=== PATIENT | male | born 1965 | race Caucasian/White ===

== ENCOUNTER 2017-12-23 08:51 | Emergency (ER) | payer BC, OTHER ==
[2017-12-23 08:56] VITALS: TEMP 98.4
[2017-12-23] MEDS ORDERED: SODIUM CHLORIDE 0.9% 1,000 ML IV ONE (09:08)
[2017-12-23 09:39] LABS: Basophils % (A) 0 %; Eosinophils # (A) 0.1 k/uL (0-0.7); Eosinophils % (A) 1 %; HCT 45.8 % (39.0-53.0); HGB 16.2 gm/dL (13.0-17.5); Lymphocytes % (A) 33 %; MCH 32.4 pg (25.0-35.0); MCHC 35.4 g/dL (31.0-37.0); MCV 91.5 fL (80.0-100.0); Monocytes # (A) 0.4 k/uL (0-1.0); Monocytes % (A) 6 %; Neutrophils # (A) 3.5 k/uL (1.3-7.7); Neutrophils % (A) 58 %; Platelet Count 177 k/uL (150-450); RBC 5.01 m/uL (4.30-5.90); RDW 12.8 % (11.5-15.5); WBC 5.9 k/uL (3.8-10.6)
[2017-12-23 09:51] LABS: Appearance,Urine Clear (Clear); Bacteria,Urine Rare /hpf; Bilirubin,Urine Negative (Negative); Blood,Urine Negative (Negative); Color,Urine Yellow; Glucose,Urine (UA) Negative (Negative); Ketones,Urine Negative (Negative); Leukocyte Esterase,Urine Negative (Negative); Nitrite,Urine Negative (Negative); PH, Urine 6.5 (5.0-8.0); Protein,Urine 1+ (Negative); RBC,Urine 1 /hpf (0-5); Specific Gravity,Urine 1.014 (1.001-1.035); Squamous Epithelial Cell,Urine <1 /hpf (0-4); Urobilinogen,Urine <2.0 mg/dL (<2.0); WBC,Urine <1 /hpf (0-5)
[2017-12-23 09:52] LABS: ALT 40 U/L (21-72); AST 45 U/L (17-59); Albumin 4.4 g/dL (3.5-5.0); Alkaline Phosphatase 43 U/L (38-126); Amylase 52 U/L (30-110); Anion Gap 11 mmol/L; Blood Urea Nitrogen 11 mg/dL (9-20); Calcium 9.3 mg/dL (8.4-10.2); Carbon Dioxide 27 mmol/L (22-30); Chloride 102 mmol/L (98-107); Glucose 119 mg/dL (74-99); Lipase 163 U/L (23-300); Potassium 4.3 mmol/L (3.5-5.1); Sodium 140 mmol/L (137-145); Total Bilirubin 1.1 mg/dL (0.2-1.3); Total Protein 7.5 g/dL (6.3-8.2)
[2017-12-23 09:55] LABS: INR 1.9 (<1.2); Prothrombin Time 17.4 sec (9.0-12.0)
--- NOTE | 2017-12-23 10:28 | ED ---
Abdominal Pain HPI - General Chief Complaint: Abdominal Pain Stated Complaint: Abdominal pain Time Seen by Provider: 12/23/17 09:00 Source: patient, RN notes reviewed Mode of arrival: ambulatory Limitations: no limitations - History of Present Illness Initial Comments: This a 52-year-old male presents emergency Department chief complaint of left lower quadrant abdominal pain. Patient states it has been bothersome or last few days and states that he initially thought he injured himself doing yard work he states he had no improvement with rest seemed to worsen. Patient states she had a colonoscopy approximate 4 years ago which showed no acute abnormality's. Patient reports no diarrhea no constipation no dysuria no hematuria. He states that he even tried stool softeners to see if it improves his symptoms but did not. Patient reports no fever no chills no night sweats. Patient states she does have mild discomfort when he stretches back. Patient's had no prior abdominal surgeries. - Related Data Home Medications Medication Instructions Recorded Confirmed Aspirin 325 mg PO DAILY 02/04/14 02/23/15 Lisinopril [Zestril] 20 mg PO DAILY 02/04/14 02/23/15 Previous Rx's Medication Instructions Recorded Rivaroxaban [Xarelto] 15 mg PO BID #42 tab 02/24/15 Rivaroxaban [Xarelto] 20 mg PO DAILY #30 tab 02/24/15 Allergies Allergy/AdvReac Type Severity Reaction Status Date / Time No Known Allergies Allergy Verified 12/23/17 08:55 Review of Systems ROS Statement: Those systems with pertinent positive or pertinent negative responses have been documented in the HPI. ROS Other: All systems not noted in ROS Statement are negative. 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 Father is alive and well. Brother with hypertension. One brother is healthy. 5 sisters are healthy. One child who is healthy. General Exam Limitations: no limitations General appearance: alert, in no apparent distress Head exam: Present: atraumatic, normocephalic, normal inspection Eye exam: Present: normal appearance, PERRL, EOMI. Absent: scleral icterus, conjunctival injection, periorbital swelling ENT exam: Present: normal exam, normal oropharynx, mucous membranes moist Neck exam: Present: normal inspection, full ROM. Absent: tenderness, meningismus, lymphadenopathy Respiratory exam: Present: normal lung sounds bilaterally. Absent: respiratory distress, wheezes, rales, rhonchi, stridor Cardiovascular Exam: Present: regular rate, normal rhythm, normal heart sounds. Absent: systolic murmur, diastolic murmur, rubs, gallop, clicks GI/Abdominal exam: Present: soft, tenderness, normal bowel sounds. Absent: distended, guarding, rebound, rigid Back exam: Absent: CVA tenderness (R), CVA tenderness (L) Skin exam: Present: warm, dry, intact, normal color. Absent: rash Course Vital Signs 12/23/17 08:53 Temperature 98.4 F Pulse Rate 76 Respiratory 20 Rate Blood Pressure 185/85 O2 Sat by Pulse 99 Oximetry Medical Decision Making - Medical Decision Making 52-year-old male presents for left lower quadrant abdominal pain. Patient had lab work, CT which shows epiploic appendicitis. Patient was updated on results patient is minimal discomfort at this time. We discussed that there is no surgical treatment or antibiotic as needed this time. Patient will follow-up with PCP and return for any worsening symptoms. - Lab Data Result diagrams: 12/23/17 09:10 12/23/17 09:10 Lab Results 12/23/17 12/23/17 12/23/17 Range/Units 09:10 09:10 09:10 WBC 5.9 (3.8-10.6) k/uL RBC 5.01 (4.30-5.90) m/uL Hgb 16.2 (13.0-17.5) gm/dL Hct 45.8 (39.0-53.0) % MCV 91.5 (80.0-100.0) fL MCH 32.4 (25.0-35.0) pg MCHC 35.4 (31.0-37.0) g/dL RDW 12.8 (11.5-15.5) % Plt Count 177 (150-450) k/uL Neutrophils % 58 % Lymphocytes % 33 % Monocytes % 6 % Eosinophils % 1 % Basophils % 0 % Neutrophils # 3.5 (1.3-7.7) k/uL Lymphocytes # 2.0 (1.0-4.8) k/uL Monocytes # 0.4 (0-1.0) k/uL Eosinophils # 0.1 (0-0.7) k/uL Basophils # 0.0 (0-0.2) k/uL PT (9.0-12.0) sec INR (<1.2) Sodium 140 (137-145) mmol/L Potassium 4.3 (3.5-5.1) mmol/L Chloride 102 (98-107) mmol/L Carbon Dioxide 27 (22-30) mmol/L Anion Gap 11 mmol/L BUN 11 (9-20) mg/dL Creatinine 0.70 (0.66-1.25) mg/dL Est GFR (CKD-EPI)AfAm >90 (>60 ml/min/1.73 sqM) Est GFR (CKD-EPI)NonAf >90 (>60 ml/min/1.73 sqM) Glucose 119 H (74-99) mg/dL Plasma Lactic Acid Raudel 1.2 (0.7-2.0) mmol/L Calcium 9.3 (8.4-10.2) mg/dL Total Bilirubin 1.1 (0.2-1.3) mg/dL AST 45 (17-59) U/L ALT 40 (21-72) U/L Alkaline Phosphatase 43 (38-126) U/L Total Protein 7.5 (6.3-8.2) g/dL Albumin 4.4 (3.5-5.0) g/dL Amylase 52 (30-110) U/L Lipase 163 (23-300) U/L Urine Color Urine Appearance (Clear) Urine pH (5.0-8.0) Ur Specific Wilbur (1.001-1.035) Urine Protein (Negative) Urine Glucose (UA) (Negative) Urine Ketones (Negative) Urine Blood (Negative) Urine Nitrite (Negative) Urine Bilirubin (Negative) Urine Urobilinogen (<2.0) mg/dL Ur Leukocyte Esterase (Negative) Urine RBC (0-5) /hpf Urine WBC (0-5) /hpf Ur Squamous Epith Cells (0-4) /hpf Urine Bacteria (None) /hpf 12/23/17 12/23/17 Range/Units 09:10 09:10 WBC (3.8-10.6) k/uL RBC (4.30-5.90) m/uL Hgb (13.0-17.5) gm/dL Hct (39.0-53.0) % MCV (80.0-100.0) fL MCH (25.0-35.0) pg MCHC (31.0-37.0) g/dL RDW (11.5-15.5) % Plt Count (150-450) k/uL Neutrophils % % Lymphocytes % % Monocytes % % Eosinophils % % Basophils % % Neutrophils # (1.3-7.7) k/uL Lymphocytes # (1.0-4.8) k/uL Monocytes # (0-1.0) k/uL Eosinophils # (0-0.7) k/uL Basophils # (0-0.2) k/uL PT 17.4 H (9.0-12.0) sec INR 1.9 H (<1.2) Sodium (137-145) mmol/L Potassium (3.5-5.1) mmol/L Chloride (98-107) mmol/L Carbon Dioxide (22-30) mmol/L Anion Gap mmol/L BUN (9-20) mg/dL Creatinine (0.66-1.25) mg/dL Est GFR (CKD-EPI)AfAm (>60 ml/min/1.73 sqM) Est GFR (CKD-EPI)NonAf (>60 ml/min/1.73 sqM) Glucose (74-99) mg/dL Plasma Lactic Acid Raudel (0.7-2.0) mmol/L Calcium (8.4-10.2) mg/dL Total Bilirubin (0.2-1.3) mg/dL AST (17-59) U/L ALT (21-72) U/L Alkaline Phosphatase (38-126) U/L Total Protein (6.3-8.2) g/dL Albumin (3.5-5.0) g/dL Amylase (30-110) U/L Lipase (23-300) U/L Urine Color Yellow Urine Appearance Clear (Clear) Urine pH 6.5 (5.0-8.0) Ur Specific Wilbur 1.014 (1.001-1.035) Urine Protein 1+ H (Negative) Urine Glucose (UA) Negative (Negative) Urine Ketones Negative (Negative) Urine Blood Negative (Negative) Urine Nitrite Negative (Negative) Urine Bilirubin Negative (Negative) Urine Urobilinogen <2.0 (<2.0) mg/dL Ur Leukocyte Esterase Negative (Negative) Urine RBC 1 (0-5) /hpf Urine WBC <1 (0-5) /hpf Ur Squamous Epith Cells <1 (0-4) /hpf Urine Bacteria Rare H (None) /hpf Disposition Clinical Impression: Epiploic appendagitis Disposition: HOME SELF-CARE Condition: Stable Instructions: Abdominal Pain (ED) Additional Instructions: Please return to the Emergency Department if symptoms worsen or any other concerns. Is patient prescribed a controlled substance at d/c from ED?: No Referrals: Jese Barkley MD [Primary Care Provider] - 1-2 days
--- NOTE | 2017-12-23 10:30 | CT ---
EXAMINATION TYPE: CT abdomen pelvis w con DATE OF EXAM: 12/23/2017 COMPARISON: CT abdomen pelvis November 19, 2015 HISTORY: LLQ pain CT DLP: 1748.2 mGycm, Automated Exposure Control for Dose Reduction was Utilized. CONTRAST: CT scan of the abdomen and pelvis is performed without oral but with IV Contrast, patient injected wi th 100 mL of Isovue 300. FINDINGS: LUNG BASES: There is stable 5 mm subpleural nodule left lung base axial image 17 presumed benign give n interval stability. LIVER/GB: Liver is diffusely low dense suggesting fatty infiltration PANCREAS: No significant abnormality is seen. SPLEEN: No significant abnormality is seen. ADRENALS: No significant abnormality is seen. KIDNEYS: Subcentimeter low dense lesion posteriorly lower pole level right kidney axial image 45 seri es 7 is too small to further characterize but presumed benign. BOWEL: No suspicious small or large bowel dilatation is seen. There is ovoid shaped fat density wit h surrounding moderate inflammatory change in the left lower quadrant axial image 59 along the anteri or aspect of the colon near junction of left and sigmoid colon. PROSTATE/SEMINAL VESICLES: No gross abnormality seen. LYMPH NODES: No greater than 1cm abdominal or pelvic lymph nodes are appreciated. OSSEOUS STRUCTURES: There is prominent facet arthropathy in the mid to lower lumbar spine. There is m oderate to severe disc space narrowing with vacuum disc phenomenon and mild spurring L5-S1 level. The re is moderate joint space loss and mild to moderate acetabular spurring in both hips. OTHER: No significant additional abnormality is seen. IMPRESSION: As above, inflammatory change left lower quadrant is consistent with epiploic appendagiti s.
[2017-12-23 11:04] VITALS: BP 166/72; PULSE 66; RESP 16
== END 2017-12-23 11:08 | disposition home or self-care (01) ==
LOC: EC 08:51
DX: K63.89 Other specified diseases of intestine (principal); I10 Essential (primary) hypertension; Z87.891 Personal history of nicotine dependence; Z79.82 Long term (current) use of aspirin; Z79.899 Other long term (current) drug therapy
CPT/HCPCS: 36415; 80053; 82150; 83605; 83690; 85025; 85610; 81001; 74177; 99284; Q9967

== ENCOUNTER → 2018-07-30 | Outpatient (CLI) | payer BC ==
--- NOTE | 2018-07-31 05:17 | XR ---
EXAMINATION TYPE: XR lumbosacral spine min 4V DATE OF EXAM: 07/30/2018 COMPARISON: NONE HISTORY: 53-year-old male with low back pain TECHNIQUE: 5 views FINDINGS: 5 lumbar type vertebral bodies. Facet arthropathy lower lumbar spine. No pars interarticularis defect . Mild multilevel degenerative disc disease with mild disc space narrowing throughout, more moderate to advanced at L5-S1 with vacuum phenomenon and endplate sclerosis. Vertebral body heights are preser guerline and alignment is maintained. IMPRESSION: 1. Mild multilevel degenerative disc disease, more moderate to advanced at L5-S1. 2. Facet arthropathy mid to lower lumbar spine. 3. No vertebral compression collapse or malalignment.
== END | disposition home or self-care (01) ==
LOC: RADXRMAIN 14:11
PROVIDERS: ATTEND Family Medicine
DX: M51.37 Other intervertebral disc degeneration, lumbosacral region (principal); M46.96 Unspecified inflammatory spondylopathy, lumbar region
CPT/HCPCS: 72110

== ENCOUNTER 2019-06-13 07:47 | Emergency (ER) | payer BC ==
[2019-06-13 07:54] VITALS: TEMP 97.6
--- NOTE | 2019-06-13 08:45 | XR ---
EXAMINATION TYPE: XR knee complete LT DATE OF EXAM: 06/13/2019 CLINICAL HISTORY: pain TECHNIQUE: Three views of the left knee are obtained. COMPARISON: None. FINDINGS: There is no acute fracture/dislocation. The tri-compartment joint spaces appear within no rmal limits. The overlying soft tissue appears unremarkable. IMPRESSION: There is no acute fracture or dislocation ICD 10 NO FRACTURE, INITIAL EVALUATION
[2019-06-13 09:21] LABS: Basophils % (A) 0 %; Eosinophils # (A) 0.1 k/uL (0-0.7); Eosinophils % (A) 1 %; INR 1.5 (<1.2); Lymphocytes # (A) 2.1 k/uL (1.0-4.8); Lymphocytes % (A) 25 %; MCH 33.3 pg (25.0-35.0); MCHC 34.9 g/dL (31.0-37.0); MCV 95.5 fL (80.0-100.0); Mean Platelet Volume 5.7; Monocytes # (A) 0.6 k/uL (0-1.0); Monocytes % (A) 7 %; Neutrophils # (A) 5.6 k/uL (1.3-7.7); Neutrophils % (A) 65 %; Platelet Count 188 k/uL (150-450); Prothrombin Time 15.1 sec (9.0-12.0); RBC 4.51 m/uL (4.30-5.90); WBC 8.6 k/uL (3.8-10.6)
--- NOTE | 2019-06-13 09:21 | US ---
EXAMINATION TYPE: US venous doppler duplex LE LT DATE OF EXAM: 06/13/2019 9:05 AM COMPARISON: NONE CLINICAL HISTORY: calf swelling. left knee pain and edema. patient on blood thinner SIDE PERFORMED: left TECHNIQUE: The lower extremity deep venous system is examined utilizing real time linear array sonog rashel with graded compression, doppler sonography and color-flow sonography. VESSELS IMAGED: External Iliac Vein (EIV) Common Femoral Vein Deep Femoral Vein Greater Saphenous Vein * Femoral Vein Popliteal Vein Small Saphenous Vein * Proximal Calf Veins (* superficial vessels) Left Leg: No evidence of DVT IMPRESSION: No evidence for DVT at this time.
--- NOTE | 2019-06-13 09:50 | ED ---
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 He reports it was nontraumatic and started yesterday. He noted a slight ache and swelling to left knee. States that he had difficulty sleeping the pain got worse. He did take a Naalehu 5 which did take the edge off of the pain. No hardware in the left lower extremity. Admits to mild warmth. No overlying skin changes. The patient continues to ambulate on the extremity but states that this painful when the joint reaches its full range of motion. He also noted a mild swelling to his left calf. He showed his who recommended that he get an ultrasound of his leg done as he does have a history of the mesenteric vein clot. Denies any fevers or chills. No numbness or tingling in his lower extremity. Denies any foot or hip pain. There are no alleviating, precipitating or modifying factors - Related Data Home Medications Medication Instructions Recorded Confirmed Lisinopril [Zestril] 20 mg PO DAILY 02/04/14 06/13/19 Gabapentin [Neurontin] 300 mg PO DIRECTED 06/13/19 06/13/19 HYDROcodone/APAP 7.5-325MG [Naalehu 1 tab PO Q12H PRN 06/13/19 06/13/19 7.5-325] LORazepam [Ativan] 1 mg PO TID PRN 06/13/19 06/13/19 Sildenafil Citrate 100 mg PO DAILY PRN 06/13/19 06/13/19 Warfarin [Coumadin] 5 mg PO BID 06/13/19 06/13/19 Previous Rx's Medication Instructions Recorded Hydrocodone/Acetaminophen [Naalehu 1 tab PO Q6HR PRN #12 tab 06/13/19 5-325] Allergies Allergy/AdvReac Type Severity Reaction Status Date / Time No Known Allergies Allergy Verified 06/13/19 09:44 Review of Systems ROS Statement: Those systems with pertinent positive or pertinent negative responses have been documented in the HPI. ROS Other: All systems not noted in ROS Statement are negative. 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 Father is alive and well. Brother with hypertension. One brother is healthy. 5 sisters are healthy. One child who is healthy. General Exam Limitations: no limitations General appearance: alert, in no apparent distress Respiratory exam: Present: normal lung sounds bilaterally. Absent: respiratory distress Cardiovascular Exam: Present: regular rate, normal rhythm Extremities exam: Present: tenderness (anterior tibial tuberosity with surrounding swelling and mild warmth. No redness to the skin. No joint effusion noted. Pain with mcmurrys test. Negative anterior and posterior drawer signs. Pain with full extension and flexion. Minimal calf swelling. 5/5 muscle strength. Achilles and pateller reflexes intact. 2+ DP and PT pulses. cap refill <2 seconds. Compartments are soft. Intact distal sensation. ) Skin exam: Present: warm, dry, intact Course Vital Signs 06/13/19 06/13/19 07:51 10:16 Temperature 97.6 F Pulse Rate 76 70 Respiratory 20 16 Rate Blood Pressure 162/92 127/82 O2 Sat by Pulse 99 Oximetry Medical Decision Making - Medical Decision Making Upon arrival the patient is placed into room 10. A thorough history and physical exam is performed. Because the patient's history of venous thrombosis I did recommend ultrasound. I also recommended lab studies as patient does have a history of subtherapeutic INR. INR is 1.5. Doppler of the left lower extremity demonstrates no acute DVT. Left knee x-ray demonstrates no fracture or dislocation. I discussed results of the patient. I did discuss diagnosis, differential and treatment options. The patient presents emergency room with report of left knee pain which is nontraumatic. No concerning signs for a s eptic joint. He does see Dr. Childs in office. He is requesting something for pain control. I did provide the patient with prescription for Naalehu. Side effect profile is discussed. He does sign and opioids start talking form. Medications E prescribed. He will follow up with Dr. Childs next week. Return to the ED for any new or worsening symptoms. The patient was discharged home in stable condition - Lab Data Result diagrams: 06/13/19 09:00 Lab Results 06/13/19 06/13/19 Range/Units 09:00 09:00 WBC 8.6 (3.8-10.6) k/uL RBC 4.51 (4.30-5.90) m/uL Hgb 15.0 (13.0-17.5) gm/dL Hct 43.0 (39.0-53.0) % MCV 95.5 (80.0-100.0) fL MCH 33.3 (25.0-35.0) pg MCHC 34.9 (31.0-37.0) g/dL RDW 12.0 (11.5-15.5) % Plt Count 188 (150-450) k/uL Neutrophils % 65 % Lymphocytes % 25 % Monocytes % 7 % Eosinophils % 1 % Basophils % 0 % Neutrophils # 5.6 (1.3-7.7) k/uL Lymphocytes # 2.1 (1.0-4.8) k/uL Monocytes # 0.6 (0-1.0) k/uL Eosinophils # 0.1 (0-0.7) k/uL Basophils # 0.0 (0-0.2) k/uL PT 15.1 H (9.0-12.0) sec INR 1.5 H (<1.2) Disposition Clinical Impression: Knee pain, left Disposition: HOME SELF-CARE Condition: Stable Instructions (If sedation given, give patient instructions): Knee Pain (ED) Additional Instructions: Please [facility] up with the [facility] regarding your pain. Return to emergency room for any new or worsening symptoms Prescriptions: Hydrocodone/Acetaminophen [Naalehu 5-325] 1 tab PO Q6HR PRN #12 tab PRN Reason: Pain Is patient prescribed a controlled substance at d/c from ED?: Yes When asked, does pt state using other controlled substances?: No If prescribed controlled substance>3 days was MAPS reviewed?: Prescribed <3 Days If opioid is for acute pain is fill amount 7 days or less?: Yes If Rx opioid, was Start Talking consent form obtained?: Yes Referrals: Jese Barkley MD [Primary Care Provider] - 1-2 days Enrrique Childs DO [Doctor of Osteopathic Medicine] - 1-2 days Time of Disposition: 09:53
[2019-06-13 10:17] VITALS: BP 127/82; PULSE 70; RESP 16
== END 2019-06-13 10:17 | disposition home or self-care (01) ==
LOC: EC 07:47
DX: M25.562 Pain in left knee (principal); M25.462 Effusion, left knee; M79.89 Other specified soft tissue disorders; K55.069 Acute infarction of intestine, part and extent unspecified; I10 Essential (primary) hypertension; Z87.891 Personal history of nicotine dependence; Z79.01 Long term (current) use of anticoagulants; Z79.899 Other long term (current) drug therapy
CPT/HCPCS: 36415; 85025; 85610; 99284

== ENCOUNTER → 2020-04-14 | Outpatient (CLI) | payer BC ==
--- NOTE | 2020-04-14 13:57 | XR ---
EXAMINATION TYPE: XR lumbar spine 2 or 3V DATE OF EXAM: 04/14/2020 CLINICAL HISTORY: pain TECHNIQUE: Three views of the lumbar spine are submitted. COMPARISON: None. FINDINGS: There are 5 lumbar type vertebral bodies identified. The lumbar spine shows satisfactory alignment w ithout evidence of acute fracture or dislocation. Vertebral body heights are within normal limits. Severe degenerative disc space narrowing at L5-S1 and vacuum disc noted. The overlying soft tissue a ppears unremarkable. IMPRESSION: No acute fracture or dislocation is seen in the lumbar spine. ICD 10 NO FRACTURE, INITIAL EVALUATION
== END | disposition home or self-care (01) ==
LOC: RADXRMAIN 13:36
PROVIDERS: ATTEND Family Medicine
DX: M54.5 Low back pain (principal)
CPT/HCPCS: 72100

== ENCOUNTER → 2020-06-21 | Outpatient (CLI) | payer OTHER ==
[2020-06-21 09:50] LABS: African American GFR (CKD) >90 (>60 ml/min/1.73 sqM); Anion Gap 4 mmol/L; Blood Urea Nitrogen 9 mg/dL (9-20); Calcium 9.3 mg/dL (8.4-10.2); Carbon Dioxide 33 mmol/L (22-30); Chloride 101 mmol/L (98-107); Glucose 128 mg/dL (74-99); Non-African American GFR(CKD) >90 (>60 ml/min/1.73 sqM); Potassium 4.4 mmol/L (3.5-5.1); Sodium 138 mmol/L (137-145)
[2020-06-21 09:51] LABS: Basophils % (A) 0 %; Eosinophils # (A) 0.1 k/uL (0-0.7); Eosinophils % (A) 1 %; HCT 44.9 % (39.0-53.0); HGB 15.9 gm/dL (13.0-17.5); INR 0.9 (<1.2); Lymphocytes # (A) 2.1 k/uL (1.0-4.8); Lymphocytes % (A) 38 %; MCH 33.6 pg (25.0-35.0); MCHC 35.3 g/dL (31.0-37.0); MCV 95.3 fL (80.0-100.0); Monocytes # (A) 0.3 k/uL (0-1.0); Monocytes % (A) 6 %; Neutrophils # (A) 2.9 k/uL (1.3-7.7); Neutrophils % (A) 53 %; Partial Thromboplastin Time 22.4 sec (22.0-30.0); Platelet Count 181 k/uL (150-450); Prothrombin Time 9.7 sec (9.0-12.0); RBC 4.71 m/uL (4.30-5.90); RDW 11.7 % (11.5-15.5); WBC 5.4 k/uL (3.8-10.6)
[2020-06-21 10:14] LABS: Appearance,Urine Clear (Clear); Bilirubin,Urine Negative (Negative); Blood,Urine Negative (Negative); Color,Urine Yellow; Glucose,Urine (UA) Negative (Negative); Ketones,Urine Negative (Negative); Leukocyte Esterase,Urine Negative (Negative); Nitrite,Urine Negative (Negative); PH, Urine 5.5 (5.0-8.0); Protein,Urine Negative (Negative); Specific Gravity,Urine 1.014 (1.001-1.035); Urobilinogen,Urine <2.0 mg/dL (<2.0)
--- NOTE | 2020-06-21 10:42 | XR ---
EXAMINATION TYPE: XR chest 2V DATE OF EXAM: 06/21/2020 COMPARISON: None HISTORY: 54-year-old male Z01.818, prelumbar surgery TECHNIQUE: Frontal and lateral views FINDINGS: The cardiomediastinal silhouette, aorta, and pulmonary vasculature are within normal limits. Trace bl unting of the posterior costophrenic angle only on the lateral view could represent a trace effusion or some pleural parenchymal scarring. Otherwise, lungs and pleural spaces are clear. IMPRESSION: 1. Trace blunting of the posterior costophrenic angle on the lateral view could represent pleural par enchymal scarring or a trace effusion. 2. Otherwise, no acute process seen.
== END | disposition home or self-care (01) ==
LOC: LABPAT 08:21
PROVIDERS: ATTEND Orthopaedic Surgery Orthopaedic Surgery of the Spine
DX: Z01.818 Encounter for other preprocedural examination (principal); Z01.812 Encounter for preprocedural laboratory examination; M48.061 Spinal stenosis, lumbar region without neurogenic claudication; R91.8 Other nonspecific abnormal finding of lung field
CPT/HCPCS: 36415; 71046; 80048; 81003; 85025; 85610; 85730; 87070; 93005

== ENCOUNTER 2020-06-23 06:15 | Observation (INO) | payer BC, OTHER ==
[2020-06-16 14:49] VITALS: BMI 31.2
[~2020-06-23 06:15] MED LIST: DEXAMETHASONE SOD PHOSPHATE 4 MG/ML 1 ML VIAL IV ONE; ONDANSETRON 4 MG/2 ML VIAL IVP ONE; ceFAZolin 1,000 MG in SODIUM CHLORIDE 0.9% IRRIGATIO 1,000 ML IRRIGATION PRN
[2020-06-23] MEDS: LACTATED RINGERS 1,000 ML IV SCH (07:05)
[2020-06-23] MEDS ORDERED: LIDOCAINE 1% (10MG/ML) FOR IV START INTRADERMA ONE (07:05)
[2020-06-23] MEDS ORDERED: EPINEPHrine 10 ML SYRINGE (0.1 MG/ML) ONE (07:29)
[2020-06-23] MEDS ORDERED: PROPOFOL 10 MG/ML 20 ML VIAL IV ONE (07:29)
[2020-06-23] MEDS ORDERED: SUCCINYLCHOLINE CHLORIDE 100 MG/5 ML SYR IV ONE (07:29)
[2020-06-23] MEDS ORDERED: ROCURONIUM 10 MG/ML (10 ML VIAL) IV ONE (07:29)
[2020-06-23] MEDS ORDERED: LIDOCAINE 1% INJ 10MG/ML (20 ML MDV) ONE (07:29)
[2020-06-23] MEDS ORDERED: NEOSTIGMINE 1 MG/ML 10 ML VIAL ONE (07:29)
[2020-06-23] MEDS ORDERED: SODIUM CHLORIDE 0.9% IRRIG 1,000 ML BTL IRRIGATION ONE (07:29)
[2020-06-23] MEDS ORDERED: fentaNYL (PF) 50 MCG/ML 2 ML AMP ONE (07:29)
[2020-06-23] MEDS ORDERED: HYDROmorphone (PF) 1 MG/ML ONE (07:29)
[2020-06-23] MEDS ORDERED: MIDAZOLAM 2 MG/2 ML VIAL ONE (07:29)
[2020-06-23] MEDS ORDERED: GLYCOPYRROLATE 0.2 MG/ML 2 ML VIAL ONE (07:29)
[2020-06-23] MEDS ORDERED: PHENYLEPHRINE-0.9% NACL SYG 1 MG/10 ML SYRINGE ONE (07:29)
[2020-06-23] MEDS ORDERED: HEPARIN SODIUM,PORCINE 10,000 UNIT/ML 1 ML VIAL ONE (07:29)
[2020-06-23] MEDS ORDERED: THROMBIN (BOVINE) 5,000 UNIT VIAL TOPICAL ONE (07:34)
[2020-06-23] MEDS ORDERED: GELATIN SPONGE,ABSORB (LARGE) 1 EACH SPONGE TOPICAL ONE (07:34)
[2020-06-23] MEDS ORDERED: LIDOCAINE 1%-EPI 1:100,000 20 ML VIAL SQ ONE ×2 (08:16)
[2020-06-23] MEDS ORDERED: BUPIVACAINE (PF) 0.25% 30 ML VIAL SQ ONE ×2 (08:16)
[2020-06-23] MEDS ORDERED: LACTATED RINGERS 1,000 ML IV ONE (09:42)
[2020-06-23] MEDS ORDERED: MAGNESIUM HYDROXIDE 2,400 MG/10 ML CUP PO PRN (12:48)
[2020-06-23] MEDS ORDERED: BENZOCAINE/MENTHOL LOZENG 1 EACH LOZENGE MUCOUS MEM PRN (12:48)
[2020-06-23] MEDS ORDERED: HYDROcodone/APAP 5-325MG 1 EACH TAB PO PRN ×2 (12:49→12:53)
[2020-06-23] MEDS ORDERED: ONDANSETRON 4 MG/2 ML VIAL IVP PRN (12:49)
--- NOTE | 2020-06-23 12:51 | FL ---
Fluoroscopy HISTORY: Lumbar fusion 25 seconds fluoroscopy time supplied to the referring clinician. 2 intraoperative C-arm images docum ent the procedure. See dictated report from orthopedic surgery.
--- NOTE | 2020-06-23 12:52 | XR ---
Limited lumbar spine HISTORY: Lumbar fusion 2 intraoperative C-arm images document the procedure
[2020-06-23] MEDS ORDERED: LORazepam 1 MG TAB PO PRN (12:53)
--- NOTE | 2020-06-23 13:00 | P.OP ---
Date of Procedure: 06/23/20 Preoperative Diagnosis: Spondylolisthesis, spinal stenosis L4 5 L5-S1, degenerative disc disease L4 5 L5-S1, low back pain, lower extremity radiculopathy Postoperative Diagnosis: Same Anesthesia: GETA Pathology: none sent Condition: stable Disposition: PACU Description of Procedure: DESCRIPTION OF PROCEDURE(S): BRIEF OPERATIVE NOTE Preoperative Diagnosis: Spondylolisthesis, spinal stenosis L4 5 L5-S1, degenerative disc disease L4 5 L5-S1, low back pain, lower extremity radiculopathy Postoperative Diagnosis: Same Procedure: Laminectomy and decompression L4 5 L5-S1 Computer CT navigation aided Minimally invasive Posterior lateral decompression and facet fusion L4 5 L5-S1 Minimally invasive Transforaminal lumbar interbody fusion for a 360 fusion L4 5 L5-S1 Discectomy for decompression L4 5 L5-S1 Placement of interbody graft L4 5 L5-S1 Use of computer navigation for fusion L4 5 L5-S1 Local autogenous bone grafting Aspiration of bone marrow from the vertebral body pedicle L4 on the right Use of bone graft extenders Surgeon: Dr. Randle Sr Vice President: Mimi FRY who is present throughout the entire the case persistence during positioning, dissection, exposure, visualization, and all crucial elements of the case as well as closure. Anesthesia: General anesthesia Estimated blood loss: Approximately 400 mL with Hunter 200 given back through Cell [employer] Complications: None apparent Components implanted: K2M minimally invasive [place] pedicle screw system withscrews measuring 6.5 mm in diameter to rods one peek interbody cage, and one expandable 8-13 mm interbody cage with 10 mL of osteo amp bio4 bone graft substitute and 30 mL of the BX bone fibers to supplement the local autogenous bone graft and bone marrow aspirate Disposition: To recovery room in good stable condition. OPERATIVE INDICATIONS The patient has had severe issues at their lower extremity in her lower back over the past several years with significant worsening over the past several months. Over the past few months the patient had pain at his back which is worsening for him . The patient is having significant pain in the back. They are unable to obtain any comfort. We did aggressive conservative treatment with medications therapy and interventional pain management however she was not having any relief. The patient also showed evidence of a listhesis with some dynamic instability. Her significant central and bilateral foraminal stenosis at L4 5. The patient has been through conservative treatment. We discussed various treatment options including surgery, and the patient wishes to proceed with surgery We discussed the risk, patient's alternatives and benefits of surgery including but not limited to, risk of bleeding risk of infection, risk of need for further surgery, risk of decreased, loss of motion, muscle function, malunion nonunion, hardware failure, nerve damage, paralysis, heart attack, blindness and . They understood issues with the current pandemic and the possibility of exposure. OPERATIVE SUMMARY After discussing all the risks, patient alternatives and benefits at length, the patient elected to proceed with surgical intervention, signed informed consent, and presented for their procedure. The patient was seen and examined in the preoperative holding area and the surgical site was marked. The patient was given antibiotics and brought to the operating room. The patient was sedated and intubated by anesthesia in standard fashion. The patient was positioned on to the operating room table in a prone position on the appropriate frame which was well-padded and well molded. We were careful to pad any bony prominences and pressure points. We were careful to maintain the patient's cervical spine and good neutral alignment and position throughout. The patient was prepped and draped in a normal standard fashion. An appropriate timeout and keystone protocol performed. We were able to proceed with the surgery. The local wound area was infiltrated with local anesthetic. Over the right iliac crest I was able to make small stab incisions and establish a guidepin screw fixation to the iliac crest 2. I was able place the computer referencing device over the guidepins to establish an appropriate reference point for the Ziem CT navigation. We then were able to place patient in an appropriate drape and do a navigation spin for visualization and 3-D reconstruction of the lumbar spine focusing at L4 5 L5-S1. I was able utilize C-arm guidance and navigation to establish appropriate position over the pedicles bilaterally at the appropriate levels . With the appropriate levels confirmed was able to make small stab incisions over the appropriate pedicle sites bilaterally. Utilizing the computer navigation device I was able to establish bony landmarks at the right iliac crest for a bony reference point for the navigation device at L4 5 and L5-S1. I was able to establish a Jamshidi needle over the lateral aspect of the pedicle and advanced the trocar into the pedicle being careful not to breech superiorly inferiorly medially or laterally using computer navigation device. Position was confirmed regularly with AP and lateral images on C-arm and with the computer navigation device at the appropriate levels bilaterally. I was able to establish the trocar into the pedicle appropriately into the posterior aspect of the vertebral body b ilaterally at the appropriate levels of L4 5 and S1. This was done at each of the pedicle positions and each of the vertebrae. At the superior vertebrae of L4 I was able to take approximately 25 mL of bone aspiration for use later in the case to supplement the allograft and autograft bone. I was able place the guidewire into the trocar and into the vertebral body appropriately under C-arm guidance. Dissection was taken down over the wire to the appropriate starting position for the screw placed. The appropriate length screw was chosen, threaded over the guidewire and screwed appropriately into the pedicle and vertebral body under C-arm guidance in excellent alignment and position with good bony purchase. This is done at each of the screw sites at the appropriate levels at L4 5 and S1. With the screws intact I extended the incision to connect the screw hole sites on the most symptomatic side on the right. I dissected down to establish access over the pars and lamina to the base of the spinous process. I was able to expose the facet joint. The capsule the facet was taken down and showed some facet arthrosis at the joint. I was able to use a combination of curettes and Kerrison rongeurs and a high-speed drill to take down the facet joint and do a facetectomy. I was able get excellent foraminal decompression and central decompression with undermining across midline to perform a laminectomy centrally and contralaterally. As able get good central decompression. The ligamentum flavum was taken down to further decompress centrally and at bilateral neural foramen. At L5-S1 was very difficult to get access to the disc spaces there had been large posterior spurring over the disc space itself and evidence of calcified disc herniation as well. It took extra time and dissection to decompress this area and remove the posterior spurring ossified disc. I was able to expose the disc space and visualize the traversing nerve root. Note was made of some disc protrusion and disc herniation that was abutting the traversing nerve root at the level causing further compression of the nerve root. I was able to establish a annulotomy at the appropriate level protecting soft tissue and neural structures. Note was made of some disc desiccation at the disc at both levels but more severely at L5-S1. I performed a complete discectomy with accommodation of curettes and rasps and scrapers. I was able get good endplate preparation at the disc space. I sized for the appropriate size interbody spacer protecting the soft tissue and neural structures. I used a static peek cage at L5-S1 given the severe collapse at that level and I used a expandable cage at L4 5. The wound was copiously irrigated and suctioned dry. There is no evidence of any dural tear or leak. I was able to pack the disc space with local autogenous bone graft as well as a small amount of bone graft which was also placed into the interbody cage itself. Protecting the soft tissue structures and neural structures I was able place the interbody cage in good alignment and good position with good fit and fill at the interbody space. Position was confirmed with C-arm guidance. Good hemostasis maintained. There is no evidence of any dural tear or leak. The wound was irrigated and suctioned dry. With the hardware intact, intraoperative C-arm imaging was again taken which showed good alignment and position of the hardware at the appropriate levels. We were then able to measure, contour and place the rods and appropriate hardware bilaterally. I was able to place capcrews, tighten them down, and torque them with the torque screwdriver appropriately. With this intact I was able to place the local autogenous bone graft with additional bone graft enhancer as necessary into the posterior lateral gutters over the decorticated transverse processes and facet joints on the contralateral side. The remainder of the bone graft was placed over the facet joint on the contralateral side after taking down the facet joint capsule. With the bone graft intact, a stable construct, and good decompression at the appropriate levels, we were able to proceed with closure. Good hemostasis was maintained. There is no evidence of dural tear or leak. The fascia was closed for a watertight closure. he subcuticular tissue was closed with absorbable suture. The wound was cleaned and dried and dressed with the appropriate dressing. The drapes were broken down. The patient was gently rolled back onto their hospital bed being careful to maintain their cervical spine and good neutral alignment and position. They were woken up by anesthesia, extubated, and brought to the recovery room in good stable condition. The patient will be admitted to the hospital for appropriate postoperative care, medical management and monitoring. We will continue to follow them closely about the postoperative course.
[2020-06-23] MEDS: HYDROmorphone 0.5 MG/0.5 ML SYRINGE IVP PRN ×3 (13:05→13:47)
[2020-06-23] MEDS: HYDROcodone/APAP 5-325MG 1 EACH TAB PO PRN ×2 (15:06→20:24)
[2020-06-23] MEDS: SODIUM CHLORIDE 0.9% 1,000 ML IV SCH (16:39)
[2020-06-23] MEDS: GABAPENTIN 400 MG CAP PO SCH ×2 (16:39→21:51)
--- NOTE | 2020-06-23 17:34 | P.CON ---
Consult Note - . Consult date: 06/23/20 Assessment/Plan:: 54-year-old male patient of Dr. Salcedo who is day of surgery for laminectomy and decompression of L4 5 L5-S1 with minimally invasive transforaminal lumbar interbody fusion for 3 risks refusion of L4 5 L5-S1. Preoperative diagnosis spondylolisthesis, spinal stenosis L4 5 L5-S1, degenerative disc disease L4 I L5 and S1, low back pain, and lower extremity radiculopathy. Postoperative diagnosis was the same. And he underwent general anesthesia for the procedure. Currently, patient is a bit with head of bed at approximately 15 angle. He is alert and oriented 3, moves all extremities, denies chest pain/pressure or difficulty breathing at this time. He denies nausea/vomiting, numbness and tingling of the lower extremities. He does mention that he continues to have lower back pain in the incision area at this time. Vital signs at this time is 130/70, pulse rate of 80, oxygen saturation is 93% on 2 L nasal cannula, respiratory rate of 18. Instructed patient on incentive spirometry which she was able obtain 4000 mL. Intake and output at this time balance of +1600, has a Melendrez catheter in place which appear to have 300 mL of clear yellow urine at time of assessment. Assessment: Spondylolithiasis Spinal stenosis at L4 5 L5-S1 Degenerative disc disease L4 5 L5-S1 Low back pain Lower extremity radiculopathy Plan: 1. Relevant home meds have been reordered. 2. Pain management with IV Dilaudid. 3. Physical therapy as ordered from surgery. 4. Diet is regular. 5. Labs for tomorrow for basic metabolic panel and complete blood count. 6. Pneumatic compression socks for DVT prophylaxis. 7. We'll continue to follow closely for medical management and will reassess again tomorrow.
[2020-06-23] MEDS: HYDROmorphone 1 MG/ML 1 ML SYRINGE IVP PRN ×2 (17:36→21:50)
[2020-06-23] MEDS ORDERED: SENNOSIDES-DOCUSATE SODIUM 1 EACH TAB PO STA (17:56)
[2020-06-24] MEDS: HYDROcodone/APAP 5-325MG 1 EACH TAB PO PRN ×4 (00:33→12:47)
[2020-06-24] MEDS: HYDROmorphone 1 MG/ML 1 ML SYRINGE IVP PRN ×4 (01:37→19:30)
[2020-06-24] MEDS: SODIUM CHLORIDE 0.9% 1,000 ML IV SCH ×2 (03:56→12:53)
[2020-06-24] MEDS: LACTATED RINGERS 1,000 ML IV SCH (03:56)
[2020-06-24] MEDS: NON FORMULARY DRUG (Glucosam/Chon-Msm1/C/Mang/Bosw [Glucosamine-Chondroitin Tablet] 1 EACH PO SCH (08:09)
[2020-06-24] MEDS: lisinopriL 20 MG TAB PO SCH (08:11)
[2020-06-24] MEDS: GABAPENTIN 400 MG CAP PO SCH ×3 (08:11→19:53)
[2020-06-24] MEDS: SENNOSIDES-DOCUSATE SODIUM 1 EACH TAB PO SCH (08:11)
[2020-06-24] MEDS: ASPIRIN 81 MG PO SCH (08:11)
[2020-06-24 08:40] LABS: Basophils % (A) 0 %; Eosinophils % (A) 0 %; HCT 39.2 % (39.0-53.0); HGB 13.3 gm/dL (13.0-17.5); Lymphocytes # (A) 1.5 k/uL (1.0-4.8); Lymphocytes % (A) 17 %; MCH 32.7 pg (25.0-35.0); MCV 96.3 fL (80.0-100.0); Mean Platelet Volume 7.1; Monocytes # (A) 0.5 k/uL (0-1.0); Monocytes % (A) 6 %; Neutrophils # (A) 6.4 k/uL (1.3-7.7); Neutrophils % (A) 76 %; Platelet Count 144 k/uL (150-450); RBC 4.07 m/uL (4.30-5.90); RDW 12.3 % (11.5-15.5); WBC 8.4 k/uL (3.8-10.6)
[2020-06-24] MEDS ORDERED: NON FORMULARY DRUG (Vitamin B Complex [Vitamin B Complex] 1 EACH Capsule) PO SCH (09:00)
[2020-06-24] MEDS: HYDROmorphone 0.5 MG/0.5 ML SYRINGE IVP PRN (09:47)
[2020-06-24 15:37] LABS: African American GFR (CKD) 115.7 (60.0-200.0); Anion Gap 3.5 mmol/L (4.00-12.00); BUN/Creat Ratio 13.75 Ratio (12.00-20.00); Calcium 8.6 mg/dL (8.7-10.3); Carbon Dioxide 31.5 mmol/L (21.6-31.8); Non-African American GFR(CKD) 99.9 (60.0-200.0)
--- NOTE | 2020-06-24 16:52 | P.PN ---
Progress Note - Text Progress Note Date: 06/24/20 Postoperative day #1 Patient is seen and examined today at bedside. The patient has some pain around the surgical site as expected, and is still needing IV and oral medications alternating. Pain is being controlled with medication. He has been able to get up out of bed and get to the bathroom. He is not having changes in his lower extremities. She denies shortness of breath. He has been able to void freely. Physical Exam Afebrile with stable vital signs Abdomen is soft nontender. Chest has good excursion deep and space expiration The incision site had drainage which was bloody overnight but this seems to be stabilized and stopped at this point. No erythema there is no purulence. There is no drainage on the dressing from this morning. Extremities have not had neurologic change from prior to surgery. He has sustained dorsal flexion plantar flexion and EHL intact. Calves and thighs were soft nontender without evidence of DVT. Assessment/Plan Postoperative day #1 status post minimally invasive decompression and fusion L4 5 L5-S1 for his spondylolisthesis with spinal stenosis and disc degeneration Patient is progressing as expected from the surgery. His drainage has slowed down oral most stopped and I think the wound site is stable. We will continue to increase the patient's mobilization with therapy. We will continue pain control with oral or IV medications. I think that he needs to increase his oral medication slightly to see if it will hold him a little bit better to try to decrease the IV medication. We will increase his [place] 7.5. I spoke with patient and his over speaker phone and they are in agreement. We'll continue to follow patient closely.
--- NOTE | 2020-06-24 16:56 | P.PN ---
Subjective Progress Note Date: 06/24/20 54-year-old male patient of Dr. Salcedo who is day of surgery for laminectomy and decompression of L4 5 L5-S1 with minimally invasive transforaminal lumbar interbody fusion for 3 risks refusion of L4 5 L5-S1. Preoperative diagnosis spondylolisthesis, spinal stenosis L4 5 L5-S1, degenerative disc disease L4 I L5 and S1, low back pain, and lower extremity radiculopathy. Postoperative diagnosis was the same. And he underwent general anesthesia for the procedure. Currently, patient is a bit with head of bed at approximately 15 angle. He is alert and oriented 3, moves all extremities, denies chest pain/pressure or difficulty breathing at this time. He denies nausea/vomiting, numbness and tingling of the lower extremities. He does mention that he continues to have lower back pain in the incision area at this time. Vital signs at this time is 130/70, pulse rate of 80, oxygen saturation is 93% on 2 L nasal cannula, respiratory rate of 18. Instructed patient on incentive spirometry which she was able obtain 4000 mL. Intake and output at this time balance of +1600, has a Melendrez catheter in place which appear to have 300 mL of clear yellow urine at time of assessment. 06/24/2020 patient has been up twice today, participated with PT . Denies lightheadedness, dizziness or focal deficits. Initial surgical dressing reinforced during the night. Hemoglobin 13.3, platelets 144. Denies nausea vomiting or diarrhea. passing flatus, no bowel movement. T-max 100.5, normal WBC. Receiving pain medication routinely every 4 hours. Objective - Vital Signs Vital signs: Vital Signs Temp 100.5 F H 06/24/20 14:00 Pulse 95 06/24/20 14:00 Resp 18 06/24/20 14:00 BP 138/80 06/24/20 14:00 Pulse Ox 96 06/24/20 14:00 Intake & Output 06/23/20 06/24/20 06/24/20 18:59 06:59 18:59 Intake Total 2751 Output Total 205 1850 1180 Balance 701 -1850 -1180 Weight 112.7 kg Intake: IV 2751 Output: Urine 1550 1850 1180 Estimated Blood Loss 500 Other: Voiding Method Indwelling Catheter # Voids 1 - Exam PHYSICAL EXAM: VITAL SIGNS: As above GENERAL: Lying in bed, no acute distress HEENT: Conjunctivae normal. eyes normal. Oral mucosa dry. NECK: No JVD. No thyroid enlargement. CARDIOVASCULAR: S1, S2 regular.. No murmur RESPIRATION: Breath sounds diminished in the bases. No rhonchi or crackles. No bronchial breathing. ABDOMEN: Soft, nondistended, nontender . No guarding. no masses palpable. Positive Bowel sounds heard. LEGS: No edema. no swelling PSYCHIATRY: Alert and oriented X3, mood and affect normal. NERVOUS SYSTEM: Cranial N 2-12 grossly normal. Moves all 4 limbs. Diffuse weakness, No focal deficits. Strength and sensation grossly intact.. Skin: Surgical dressing reinforced, no rash . - Labs CBC & Chem 7: 06/24/20 07:48 06/24/20 07:48 Labs: Abnormal Lab Results - Last 24 Hours (Table) 06/24/20 06/24/20 Range/Units 07:48 07:48 RBC 4.07 L (4.30-5.90) m/uL Plt Count 144 L (150-450) k/uL Anion Gap 3.50 L (4.00-12.00) mmol/L Calcium 8.6 L (8.7-10.3) mg/dL Assessment and Plan Assessment: Spondylolithiasis,Spinal stenosis at L4 5 L5-S1, radiculopathy, degenerative disc disease, status post laminectomy and decompression Atelectasis Dehydration Obesity, BMI 31.7 Hypertension Osteoarthritis Chronic back pain Anxiety Former nicotine dependence Plan: Continue on current medication regime ,monitoring and synthetic treatment. 500 mL 0.9% fluid bolus. Encouraged to increase water intake. Aggressive pulmonary toileting with incentive spirometer reinforced. Stool softeners added to med regimen.Pain management as per primary team. Increase ambulation as tolerated/PT. The impression and plan of care has been dictated as directed. : I performed a history and examination of this patient, discussed the same with the dictator. I agree with the dictator's note ,documented as a scribe. Any additional findings or plans will be noted.
[2020-06-24] MEDS: DOCUSATE 100 MG CAP PO SCH ×2 (17:13→19:53)
[2020-06-24] MEDS: HYDROcodone/APAP 7.5-325MG 1 EACH TAB PO PRN ×2 (17:13→21:24)
[2020-06-25] MEDS: HYDROmorphone 1 MG/ML 1 ML SYRINGE IVP PRN (00:26)
[2020-06-25] MEDS: HYDROcodone/APAP 7.5-325MG 1 EACH TAB PO PRN ×2 (02:59→07:47)
[2020-06-25] MEDS: SODIUM CHLORIDE 0.9% 1,000 ML IV SCH ×2 (05:01→17:17)
[2020-06-25] MEDS: HYDROmorphone 0.5 MG/0.5 ML SYRINGE IVP PRN ×4 (05:32→23:14)
[2020-06-25] MEDS: LACTATED RINGERS 1,000 ML IV SCH (06:32)
[2020-06-25] MEDS: GABAPENTIN 400 MG CAP PO SCH ×3 (07:46→20:26)
[2020-06-25] MEDS: ASPIRIN 81 MG PO SCH (07:46)
[2020-06-25] MEDS: DOCUSATE 100 MG CAP PO SCH ×2 (07:46→20:24)
[2020-06-25] MEDS: SENNOSIDES-DOCUSATE SODIUM 1 EACH TAB PO SCH (07:46)
[2020-06-25] MEDS: lisinopriL 20 MG TAB PO SCH (07:47)
[2020-06-25] MEDS: NON FORMULARY DRUG (Glucosam/Chon-Msm1/C/Mang/Bosw [Glucosamine-Chondroitin Tablet] 1 EACH PO SCH (07:47)
[2020-06-25 08:45] LABS: Basophils % (A) 0 %; Eosinophils % (A) 0 %; HCT 36.9 % (39.0-53.0); HGB 12.5 gm/dL (13.0-17.5); Lymphocytes # (A) 1.6 k/uL (1.0-4.8); Lymphocytes % (A) 18 %; MCH 32.7 pg (25.0-35.0); MCHC 33.9 g/dL (31.0-37.0); MCV 96.5 fL (80.0-100.0); Mean Platelet Volume 7.8; Monocytes # (A) 0.5 k/uL (0-1.0); Monocytes % (A) 6 %; Neutrophils # (A) 6.7 k/uL (1.3-7.7); Neutrophils % (A) 75 %; Platelet Count 161 k/uL (150-450); RBC 3.82 m/uL (4.30-5.90); WBC 8.9 k/uL (3.8-10.6)
--- NOTE | 2020-06-25 09:04 | P.PN ---
Progress Note - Text Progress Note Date: 06/25/20 Orthopedic Spine: History of present illness: Patient is a pleasant 54-year-old male who is seen and examined at the bedside following posterior lateral decompression and fusion performed Sunday. Patient states they are doing ok postsurgically. He continues to have significant pain in his his surgical sites. He states he experiences a burning sensation. He's had difficulty in the evening due to his pain. He has difficulty rolling over in bed. He has been able to ambulate to the restroom with assistance. Currently does not complain of nausea, vomiting, fever, or chills. Patient states pain has been adequately controlled. Patient is eating and voiding freely without difficulty. He denies specific lower extremity weakness or radiculopathy bilaterally. He does admit to peripheral neuropathy. Patient's past medical history includes hypertension, anxiety, and obesity. Physical Exam Lumbar Fusion: Status post surgical day number 2 Patient is awake, alert, and oriented 3 Vital signs stable Good chest excursion with deep inspiration and expiration Abdomen soft nontender Dorsiflexion, plantarflexion, and extensor hallucis longus positive sustained bilaterally No signs or symptoms of DVT; no calf pain; pneumatic cuffs intact bilateral lower extremities No active drainage from the surgical site; no erythema, purulence, or signs of infection Dressings are removed and changed to nonstick Telfa and Tegaderm Neurovascularly intact bilaterally lower extremities Assessment: Minimally invasive posterior lateral decompression and fusion with transforaminal lumbar interbody fusion Low back pain L4-5 and L5-S1 spinal canal stenosis and degenerative disc disease Spondylolisthesis Lumbar muscle spasm Peripheral neuropathy Hypertension Anxiety Obesity Plan: 1. Ambulate as tolerated; work with Physical Therapy to increase mobilization 2. Continue pain control with IV and oral medications; patient continues have some difficulty with pain control. We will plan to increase Bradford to 10 mg/325 mg 1-2 tabs every 4 hours as needed for pain. We will discontinue Bradford 7.5 mg/325 mg. He is also prescribed cyclobenzaprine 10 mg 1 tab 3 times a day as needed for muscle spasm. MAPS has been reviewed today, , with an Overall Overdose Risk Score of 190. An "Opiod Start Talking" Form has been signed and placed in the patient's chart. A prescription has been written for Bradford 10 mg/325 mg 1-2 tabs every 4 hours as needed for pain, dispensed #84. Patient should avoid anti-inflammatory medications over the next 6 weeks postoperatively. Patient is also given a pr escription for cyclobenzaprine 10 mg 1 tab 3 times a day as needed for muscle spasm, dispensed #90. Medications are sent to the [facility] pharmacy located within the [facility]. 3. Dressing changed to Telfa and Tegaderm; patient may shower with dressings intact 4. Medical management can continue to manage patient for patient's other medical diagnoses 5. We will continue to follow the patient closely; the patient is able to improve postoperatively, will be planned for discharge as early as tomorrow, 06/26/2020 6. Patient can follow-up with Alex Ferguson PA-C or Dr. Michael Randle at [facility] in 2-3 weeks following discharge
[2020-06-25] MEDS ORDERED: HYDROcodone/APAP 10-325MG 1 EACH TAB PO PRN ×3 (09:09→09:12)
[2020-06-25] MEDS: CYCLOBENZAPRINE 10 MG TAB PO PRN ×2 (09:59→17:29)
[2020-06-25 11:19] LABS: African American GFR (CKD) 122.3 (60.0-200.0); Anion Gap 7.1 mmol/L (4.00-12.00); Calcium 8.6 mg/dL (8.7-10.3); Carbon Dioxide 26.9 mmol/L (21.6-31.8); Non-African American GFR(CKD) 105.5 (60.0-200.0); Potassium 3.9 mmol/L (3.5-5.5)
--- NOTE | 2020-06-25 14:29 | P.PN ---
Subjective Progress Note Date: 06/25/20 54-year-old male patient of Dr. Salcedo who is day of surgery for laminectomy and decompression of L4 5 L5-S1 with minimally invasive transforaminal lumbar interbody fusion for 3 risks refusion of L4 5 L5-S1. Preoperative diagnosis spondylolisthesis, spinal stenosis L4 5 L5-S1, degenerative disc disease L4 I L5 and S1, low back pain, and lower extremity radiculopathy. Postoperative diagnosis was the same. And he underwent general anesthesia for the procedure. Currently, patient is a bit with head of bed at approximately 15 angle. He is alert and oriented 3, moves all extremities, denies chest pain/pressure or difficulty breathing at this time. He denies nausea/vomiting, numbness and tingling of the lower extremities. He does mention that he continues to have lower back pain in the incision area at this time. Vital signs at this time is 130/70, pulse rate of 80, oxygen saturation is 93% on 2 L nasal cannula, respiratory rate of 18. Instructed patient on incentive spirometry which she was able obtain 4000 mL. Intake and output at this time balance of +1600, has a Melendrez catheter in place which appear to have 300 mL of clear yellow urine at time of assessment. 06/24/2020 patient has been up twice today, participated with PT . Denies lightheadedness, dizziness or focal deficits. Initial surgical dressing reinforced during the night. Hemoglobin 13.3, platelets 144. Denies nausea vomiting or diarrhea. passing flatus, no bowel movement. T-max 100.5, normal WBC. Receiving pain medication routinely every 4 hours. 06/25/2020 received small fluid bolus yesterday, currently afebrile with T-max 100. Continues to have significant pain and pain regimen has been further adju sted as per orthopedic surgery. Ambulating, tolerating exertion well. Good diet intake with no nausea vomiting or diarrhea. Passing flatus. Objective - Vital Signs Vital signs: Vital Signs Temp 98.6 F 06/25/20 07:00 Pulse 75 06/25/20 07:00 Resp 17 06/25/20 07:00 BP 128/74 06/25/20 07:00 Pulse Ox 95 06/25/20 07:00 Intake & Output 06/24/20 06/25/20 06/25/20 18:59 06:59 18:59 Intake Total 1200 600 Output Total 1180 Balance 20 600 Intake: Intake, IV Titration 600 Amount Sodium Chloride 0.9% 1, 600 000 ml @ 75 mls/hr IV . [id number] [facility] Rx#:[id number] Oral 1200 Output: Urine 1180 Other: Voiding Method Indwelling Catheter Toilet Toilet # Voids 1 3 - Exam PHYSICAL EXAM: VITAL SIGNS: As above GENERAL: Lying in bed, no acute distress HEENT: Conjunctivae normal. eyes normal. Oral mucosa moist. NECK: No JVD. No thyroid enlargement. CARDIOVASCULAR: S1, S2 regular.No murmur RESPIRATION: Breath sounds diminished in the bases. ABDOMEN: Soft, nondistended, nontender . No guarding. Positive Bowel sounds. LEGS: No edema. no swelling. PSYCHIATRY: Alert and oriented X3, mood and affect normal. NERVOUS SYSTEM: Cranial N 2-12 grossly normal. Moves all 4 limbs. No focal deficits. Strength and sensation grossly intact-Patient does report some peripheral neuropathy. Skin: Telfa/Tegaderm dressing clean dry and intact.no rash . - Labs CBC & Chem 7: 06/25/20 08:23 06/25/20 08:23 Labs: Abnormal Lab Results - Last 24 Hours (Table) 06/24/20 06/25/20 06/25/20 Range/Units 07:48 08:23 08:23 RBC 3.82 L (4.30-5.90) m/uL Hgb 12.5 L (13.0-17.5) gm/dL Hct 36.9 L (39.0-53.0) % Anion Gap 3.50 L (4.00-12.00) mmol/L BUN 7.0 L (9.0-27.0) mg/dL BUN/Creatinine Ratio 10.00 L (12.00-20.00) Ratio Glucose 123 H (70-110) mg/dL Calcium 8.6 L 8.6 L (8.7-10.3) mg/dL Assessment and Plan Assessment: Spondylolithiasis,Spinal stenosis at L4 5 L5-S1, radiculopathy, degenerative disc disease, status post laminectomy and decompression Atelectasis Dehydration Obesity, BMI 31.7 Hypertension Osteoarthritis Chronic back pain Anxiety Former nicotine dependence Plan: Continue on current medication regime ,monitoring and synthetic treatment. Encouraged aggressive pulmonary toileting with incentive spirometer reinforced. Pain management as per primary team.PT. UA ordered.discharge planning in progress as per his appendix surgery for tomorrow. Follow with PCP in one week. The impression and plan of care has been dictated as directed. : I performed a history and examination of this patient, discussed the same with the dictator. I agree with the dictator's note ,documented as a scribe. Any additional findings or plans will be noted.
[2020-06-25] MEDS: HYDROcodone/APAP 10-325MG 1 EACH TAB PO PRN ×2 (15:28→20:25)
[2020-06-25] MEDS ORDERED: polyethylene glycoL 3350 17 GM POWD.PACK PO SCH (21:00)
[2020-06-26] MEDS: CYCLOBENZAPRINE 10 MG TAB PO PRN ×2 (00:14→09:26)
[2020-06-26] MEDS: HYDROcodone/APAP 10-325MG 1 EACH TAB PO PRN ×4 (00:39→13:57)
[2020-06-26] MEDS: LACTATED RINGERS 1,000 ML IV SCH (04:58)
[2020-06-26 06:14] LABS: Appearance,Urine Clear (Clear); Bilirubin,Urine Negative (Negative); Blood,Urine Negative (Negative); Color,Urine Yellow; Glucose,Urine (UA) Negative (Negative); Ketones,Urine Negative (Negative); Leukocyte Esterase,Urine Negative (Negative); Nitrite,Urine Negative (Negative); PH, Urine 5.5 (5.0-8.0); Protein,Urine Trace (Negative); Specific Gravity,Urine 1.026 (1.001-1.035); Urobilinogen,Urine <2.0 mg/dL (<2.0)
[2020-06-26 07:59] VITALS: BP 150/74; PULSE 80; RESP 17; TEMP 98.3
[2020-06-26] MEDS: SODIUM CHLORIDE 0.9% 1,000 ML IV SCH (09:23)
[2020-06-26] MEDS: DOCUSATE 100 MG CAP PO SCH (09:26)
[2020-06-26] MEDS: ASPIRIN 81 MG PO SCH (09:26)
[2020-06-26] MEDS: SENNOSIDES-DOCUSATE SODIUM 1 EACH TAB PO SCH (09:26)
[2020-06-26] MEDS: GABAPENTIN 400 MG CAP PO SCH (09:26)
[2020-06-26] MEDS: lisinopriL 20 MG TAB PO SCH (09:26)
[2020-06-26] MEDS: NON FORMULARY DRUG (Glucosam/Chon-Msm1/C/Mang/Bosw [Glucosamine-Chondroitin Tablet] 1 EACH PO SCH (09:28)
--- NOTE | 2020-06-26 11:13 | P.DS ---
Providers Date of admission: 06/23/20 23:54 Attending physician: Imelda Randle Consults: 06/23/20 12:49 Consult Physician Routine Consulting Provider: Jese Barkley Consult Reason/Comments: Medical management Do you want consulting provider notified?: Yes Primary care physician: Jese Barkley Hospital Course: The patient presented on the day of admission as per their operative note. He had significant disc degeneration in his lower lumbar spine with listhesis and stenosis which really well his low back pain and lower extremity symptoms. Patient underwent remained basically decompression fusion L4 5 L5-S1 as per his operative note. He's been making steady progress. He is mobilizing better. He is voiding freely. He had a small bowel movement today. He is tolerating his diet appropriately. He has not had his IV pain medications since last night and he is tolerating his oral medications adequately. Physical Exam The incision site is clean dry and intact. There is no erythema no drainage. There is no purulence no evidence of infection. Abdomen soft and nontender. Chest has good excursion with deep inspiration and expiration. The patient has active and passive range of motion intact at the upper and lower extremities. There is no acute change in neurologic status. He has sustained dorsal flexion and EHL intact Hospital Course Postoperative day #3 status post minimally invasive decompression and fusion L4 5 L5-S1 for his spinal stenosis with listhesis and degenerative disc disease The patient has been making good progress postoperatively. They have completed the prophylactic antibiotics without any signs or symptoms of infection. The patient has been able to advance their diet, and is tolerating diet adequately. The pain was initially controlled with IV medications and is now controlled appropriately with oral medications. The patient has been able to increase their mobilization. He is doing much better with his transition from IV medications to oral medications. We will keep him on the [place] 10 for now. We'll go ahead and give him a few Percocet to take for breakthrough pain if he needs at home. He is also given her perception for muscle relaxants as needed The patient has progressed appropriately. I think they are in good stable condition for discharge today. I discussed this with his as well and they are in agreement. They will be sent home with appropriate prescriptions. I answered their questions to the best of my ability in a language that they can understand and they are agreeable with the plan. They will follow up as directed In approximately 2 weeks or sooner if they have any problems. Patient Condition at Discharge: Good Plan - Discharge Summary Discharge Rx Participant: Yes New Discharge Prescriptions: New Cyclobenzaprine [Flexeril] 10 mg PO TID PRN #90 tab PRN Reason: Muscle Spasm HYDROcodone/APAP 10-325MG [[place] 10] 1 - 2 each PO Q4H PRN #84 tab PRN Reason: Pain oxyCODONE HCL/ACETAMINOPHEN [Percocet 5-325 mg] 1 tab PO Q12HR PRN #14 tab PRN Reason: Pain No Action lisinopriL [Zestril] 20 mg PO QAM Hydrocodone/Acetaminophen [[place] 5-325] 1 tab PO Q6HR PRN #12 tab PRN Reason: Pain LORazepam [Ativan] 1 mg PO TID PRN PRN Reason: Anxiety Gabapentin 800 mg PO TID Vitamin B Complex 1 each PO DAILY Turmeric Root Extract [Turmeric] 500 mg PO DAILY Stool Softener 1 tab PO DAILY PRN PRN Reason: Takes with [place] Glucosam/Roland-Msm1/C/Perico/Bosw [Glucosamine-Chondroitin Tablet] 1 each PO DAILY Aspirin [Adult Low Dose Aspirin EC] 81 mg PO DAILY Discharge Medication List lisinopriL [Zestril] 20 mg PO QAM 02/04/14 [History] Hydrocodone/Acetaminophen [[place] 5-325] 1 tab PO Q6HR PRN #12 tab 06/13/19 [Rx] LORazepam [Ativan] 1 mg PO TID PRN 06/13/19 [History] Aspirin [Adult Low Dose Aspirin EC] 81 mg PO DAILY 06/16/20 [History] Gabapentin 800 mg PO TID 06/16/20 [History] Glucosam/Roland-Msm1/C/Perico/Bosw [Glucosamine-Chondroitin Tablet] 1 each PO DAILY 06/16/20 [History] Stool Softener 1 tab PO DAILY PRN 06/16/20 [History] Turmeric Root Extract [Turmeric] 500 mg PO DAILY 06/16/20 [History] Vitamin B Complex 1 each PO DAILY 06/16/20 [History] Cyclobenzaprine [Flexeril] 10 mg PO TID PRN #90 tab 06/25/20 [Rx] HYDROcodone/APAP 10-325MG [[place] 10] 1 - 2 each PO Q4H PRN #84 tab 06/25/20 [Rx] oxyCODONE HCL/ACETAMINOPHEN [Percocet 5-325 mg] 1 tab PO Q12HR PRN #14 tab 06/26/20 [Rx] Follow up Appointment(s)/Referral(s): [facility] [NON-STAFF] - As Needed (walker) Alex Ferguson PAC [PHYSICIAN SCREEN PRINTER] - 2 Weeks (Patient may follow-up with Alex Ferguson PA-C or Dr. Michael Randle at [facility] in 2-3 weeks following discharge. ) Jese Barkley MD [Primary Care Provider] - As Needed Activity/Diet/Wound Care/Special Instructions: 1. Patient may shower with Tegaderm dressing intact. 2. Patient may remove Tegaderm dressing on Sunday and may shower without a dressing on Sunday. 3. Patient should refrain from driving until at least after their first follow- up appointment in the office. 4. Patient should avoid excessive bending, twisting, and lifting; no lifting greater than 10 pounds 5. Take medications as prescribed 6. Do not soak in tub Discharge Disposition: HOME SELF-CARE
== END 2020-06-26 14:26 | disposition home or self-care (01) ==
LOC: OR 06:15 → 4SSUR 12:31 → OR 23:54 → 4SSUR 06-24 00:13 → OR 06-24 00:13
PROVIDERS: ADMIT Orthopaedic Surgery Orthopaedic Surgery of the Spine; ATTEND Orthopaedic Surgery Orthopaedic Surgery of the Spine
DX: M43.17 Spondylolisthesis, lumbosacral region (principal); M48.07 Spinal stenosis, lumbosacral region; M51.17 Intervertebral disc disorders with radiculopathy, lumbosacral region; M47.26 Other spondylosis with radiculopathy, lumbar region; I10 Essential (primary) hypertension; G62.9 Polyneuropathy, unspecified; J98.11 Atelectasis; E86.0 Dehydration; E66.9 Obesity, unspecified; G89.29 Other chronic pain; F41.9 Anxiety disorder, unspecified; M62.830 Muscle spasm of back; G47.33 Obstructive sleep apnea (adult) (pediatric); Z68.31 Body mass index [BMI] 31.0-31.9, adult; Z91.040 Latex allergy status; Z79.899 Other long term (current) drug therapy; Z79.891 Long term (current) use of opiate analgesic; Z86.718 Personal history of other venous thrombosis and embolism; Z97.3 Presence of spectacles and contact lenses; Z98.890 Other specified postprocedural states; Z87.891 Personal history of nicotine dependence; Z79.01 Long term (current) use of anticoagulants
CPT/HCPCS: 22633; 22634; 22853 ×2; 20931; 63047; 63048; 97116; 97530; 97161; 86891; 86900; 86901; 80048 ×2; 85025 ×2; 86850; 81003; 72100; 61783; G0378 ×3; P9022; C1713; C1762; J2250; J1644; J1100; J2710; J0690 ×2; J2405; J2001; J0171; J3010; J1170 ×6; J2370; J0330; J2704

== ENCOUNTER → 2022-10-20 | Outpatient (CLI) | payer BC ==
--- NOTE | 2022-10-20 12:41 | US ---
EXAMINATION TYPE: US carotid duplex BILAT DATE OF EXAM: 10/20/2022 COMPARISON: NONE CLINICAL HISTORY: murmur R01.1. Pt states light headed TECHNIQUE: Carotid duplex ultrasound examination. Indirect Doppler criteria was utilized. FINDINGS: EXAM MEASUREMENTS: RIGHT: Peak Systolic Velocity (PSV) cm/sec ----- Right CCA: 102.6 ----- Right ICA: 84.2 ----- Right ECA: 65.5 ICA/CCA ratio: 0.8 RIGHT: End Diastole cm/sec ----- Right CCA: 22.7 ----- Right ICA: 29.2 ----- Right ECA: 14.9 LEFT: Peak Systolic Velocity (PSV) cm/sec ----- Left CCA: 80.9 ----- Left ICA: 105.6 ----- Left ECA: 60.7 ICA/CCA ratio: 1.3 LEFT: End Diastole cm/sec ----- Left CCA: 22.6 ----- Left ICA: 34.4 ----- Left ECA: 15.4 VERTEBRALS (direction of flow): Right Vertebral: Antegrade Left Vertebral: Antegrade Rhythm: Normal ELECTION SUPERVISOR NOTES: No significant stenosis seen IMPRESSION: No evidence for hemodynamically significant stenosis. Criteria for Assigning % of Stenosis / Diameter reduction (Estimation based on the indirect measurements of the internal carotid artery velocities (ICA PSV). 1. Normal (no stenosis)=ICA PSV < 125 cm/s: ratio < 2.0: ICA EDV<40 cm/s. 2. Less than 50% stenosis=ICA PSV < 125 cm/s: ratio < 2.0: ICA EDV<40 cm/s. 3. 50 to 69% stenosis=ICA PSV of 125 to 230 cm/s: ration 2.0 ? 4.0: ICA EDV 40-100 cm/s. 4. Greater than 70% stenosis to near occlusion= ICA PSV > 230 cm/s: ratio > 4.0: ICA EDV > 100 cm/s. 5. Near occlusion= ICA PSV velocities may be low or undetectable: variable ratio and ICA EDV. 6. Total occlusion=unable to detect flow.
--- NOTE | 2022-10-20 17:41 | CA ---
Transthoracic Echo Report Name: Dontae Dejesus Age: 57 Gender: M : 1965 Exam Date: 10/20/2022 12:43 Exam Location: [place] [facility] Ht (in): 75 Wt (lb): 250 Ordering Physician: Jese Barkley MD Attending/Referring Phys: Jees Barkley MD Creel Clerk Tere Reyes, [facility] [place] Procedure CPT: Indications: R01.1 Murmur Cardiac Hx: Technical Quality: Good Contrast 1: Total Dose (mL): Contrast 2: Total Dose (mL): MEASUREMENTS (Male / Female) Normal Values 2D ECHO LV Diastolic Diameter PLAX 4.4 cm 4.2 - 5.9 / 3.9 - 5.3 cm LV Systolic Diameter PLAX 3.0 cm IVS Diastolic Thickness 1.3 cm 0.6 - 1.0 / 0.6 - 0.9 cm LVPW Diastolic Thickness 1.3 cm 0.6 - 1.0 / 0.6 - 0.9 cm LV Relative Wall Thickness 0.6 RV Internal Dim ED PLAX 3.5 cm LA Systolic Diameter LX 3.2 cm 3.0 - 4.0 / 2.7 - 3.8 cm LV Diastolic Volume MOD 4C 97.5 cm??? LV Systolic Volume MOD 4C 42.5 cm??? LV Ejection Fraction MOD 4C 56.4 % LV Diastolic Length 4C 7.6 cm LV Systolic Length 4C 6.3 cm LV Diastolic Volume MOD 2C 68.8 cm??? LV Systolic Volume MOD 2C 22.5 cm??? LV Ejection Fraction MOD 2C 67.3 % LV Diastolic Length 2C 7.3 cm LV Systolic Length 2C 5.9 cm LA Volume 41.9 cm??? 18 - 58 / 22 - 52 cm??? M-MODE Aortic Root Diameter MM 3.6 cm MV E Point Septal Separation 0.4 cm AV Cusp Separation MM 2.6 cm DOPPLER AV Peak Velocity 135.3 cm/s AV Peak Gradient 7.3 mmHg MV Area PHT 2.2 cm??? Mitral E Point Velocity 67.5 cm/s Mitral A Point Velocity 67.5 cm/s Mitral E to A Ratio 1.0 MV Deceleration Time 337.3 ms MV E' Velocity 8.0 cm/s Mitral E to MV E' Ratio 8.5 FINDINGS Left Ventricle Left ventricular ejection fraction is estimated at 55-60 %. Left ventricular cavity size normal. Mild concentric left ventricular hypertrophy. Normal left ventricular wall motion. Right Ventricle Right ventricular dilatation. Unable to estimate the right ventricular systolic pressure. Right Atrium Normal right atrial size. Left Atrium Normal left atrial size. Mitral Valve Structurally normal mitral valve. No mitral stenosis, regurgitation or prolapse. Aortic Valve Trileaflet aortic valve. No aortic valve stenosis or regurgitation. Tricuspid Valve Structurally normal tricuspid valve. No tricuspid stenosis, regurgitation or prolapse. Pulmonic Valve Structurally normal pulmonic valve. No pulmonic regurgitation. Pericardium Normal pericardium. No pericardial effusion. Aorta Normal size aortic root and proximal ascending aorta. CONCLUSIONS Left ventricular ejection fraction 55-60% Mild increased left ventricular wall thickness No pericardial effusion Previewed by: Dr. Gamal Dent DO (Electronically Signed) Final Date: 20 October 2022 17:40
== END | disposition home or self-care (01) ==
LOC: RADUSWWP 12:06
PROVIDERS: ATTEND Family Medicine
DX: R01.1 Cardiac murmur, unspecified (principal)
CPT/HCPCS: 93005; 93306; 93880

== ENCOUNTER → 2024-05-14 | Outpatient (CLI) | payer BC ==
--- NOTE | 2024-05-14 15:23 | US ---
EXAMINATION TYPE: US extremity nonvasc mass LT DATE OF EXAM: 05/14/2024 COMPARISON: NONE CLINICAL INDICATION: Male, 58 years old with history of R22.42 MASS THIGH; Pt has a lump on his left lower lateral thigh for about a year. No pain. Pt denies trauma TECHNIQUE: Left lower lateral thigh scanned in area of concern FINDINGS/IMPRESSION: Hypoechoic avascular area with hyperechoic hilum inside measuring 1.4 x 1.2 x 0 .4cm. This is indeterminate but could be seen with a superficial lymph node versus other etiologies. Consider tissue sampling as clinically indicated. [facility], , 05/14/2024 3:21 PM
== END | disposition home or self-care (01) ==
LOC: RADUSWWP 14:34
PROVIDERS: ATTEND Family Medicine
DX: R22.42 Localized swelling, mass and lump, left lower limb (principal)

== ENCOUNTER → 2024-06-30 | Outpatient (CLI) | payer BC ==
[2024-06-30 10:22] VITALS: BP 114/75; PULSE 86; RESP 16
--- NOTE | 2024-06-30 15:20 | P.PAINPG ---
PQRS Measure Charge Sheet Comment: HISTORY OF PRESENT ILLNESS: A 58 yr old male as a referral from Dr Randle presents today w severe and chronic LBP > 5 yrs secondary to L4-S1 Laminectomy/ Fusion w Hardware for evaluation. Pt states pain level is provoked at 7 /10 in intensity, constant, localized in the lower lumbar spine, predominantly axial, achy in character w occasional shooting pain towards the L & R of midline. Pain is provoked by weight bearing. Pain is alleviated by PT x 6 wks which ended in Oct 2023, physician guided home exerci ses 5 times weekly since Oct 2023, medications ([place] 5/325mg, Ibu 800mg), topical, heat, ice, manual massage, repositioning and rest . Oswestry axial pain score at 29. PMH: OA, HTN, Hx of Mesenteric Vein Clot PSH: Retina Surgery, L4-S1 Laminectomy/ Fusion/ Hardware (2019) SH: Former tobacco user, Occ ETOH use, No illicit drug use FH: Fa- No Reported History. Bro- HTN. Sis x5- No Reported History All: See list Meds: See list REVIEW OF ORGAN SYSTEMS: CONSTITUTIONAL: No fevers or chills. No recent weight loss. NEUROLOGICAL: + numbness and tingling along the distal extremities. No seizure disorders or headaches. MUSCULOSKELETAL: + pain PSYCHIATRIC: Denies current depression or suicidal thoughts. Physical Examinations : Constitutional : Cooperative , not in acute distress . Neurologic : Cranial nerve II to XII intact. No focal neurological deficits. Psychiatric : alert & oriented x 3. Matching mood & appropriate affect. Judgment & insight intact. Musculoskeletal : Cervical Spine Motor strength in the deltoid and biceps: Normal right side. Normal Left side Motor strength biceps and the wrist extensors: Normal right side . Normal left side Motor strength in the triceps muscle: Normal right side. Normal left side Deep tendon reflexes: Normal at the biceps. Normal at Brachioradialis. Normal at triceps Vertebral body tenderness to deep palpation over Cervical facet loading test: positive bilaterally Spurling test: positive bilaterally Neck distraction test: positive bilaterally Gilberto sign: positive bilaterally Lumbar spine +Incisional scar intact Motor strength lower extremities ,thigh and legs 5/5 Right side , 5/5 Left side Deep tendon reflexes : Normal Knee Jerk. Normal Ankle Jerk Vertebral body tenderness over L5 Manrique Test positive BL L5-S1 Lumbar facet Loading Test: positive Right / positive Left Range of motion of the lumbar spine Flexion 30 degrees, extension 10 degrees Straight Leg Raise test: Left/ Right positive at degrees Len test: positive right / positive left. Severe tenderness over the Sacroiliac joint on the Right / Left sides Gaenslen test: positive bilaterally Seated flexion test: positive bilaterally. Sacral spine : Severe tenderness over the Sacroiliac joint: right side / left side Range of motion: Flexion of the lumbar spine <60 degrees Range of motion: Extension of the lumbar spine <20 degrees Gaenslen's Test positive Len test: positive right side / left side Thigh Thrust Test Sacral Thrust Test Imaging: Awaiting MRI Lumbar from [facility] Assessment/ Plan : L4-S1 laminectomy/ fusion w hardware Recommendation of Caudal PAULETTE w Lysis. Risks, benefits of procedure discussed and patient verbalized understanding. Admits to anti- coagulant use or medical history of diabetes. Protocol for discontinuation/ continuation of medications yasmani procedure discussed. All questions answered. I have spent greater than 30 minutes on patient care today. Dr Veliz was available by phone for the evaluation of this patient. The time was used to review the medical records including relevant urine studies and Prescription history (MAPs), review of the available imaging, evaluation and examination of the patient, coordination of care with the medical staff and if applicable referring physicians, as well as creation of the medical record - Pain Location Lower Back Non-Pharmacological Interventions: Heat, Physical Therapy Pharmacological Interventions: PRN Medication, Scheduled Medication PQRS Narrative: Smoking Status Former smoker Home Medications: Ambulatory Orders lisinopriL [Zestril] 20 mg PO QAM 02/04/14 Hydrocodone/Acetaminophen [[place] 5-325] 1 tab PO Q6HR PRN #12 tab 06/13/19 LORazepam [Ativan] 1 mg PO TID PRN 06/13/19 Aspirin [Adult Low Dose Aspirin EC] 81 mg PO DAILY 06/16/20 Gabapentin 800 mg PO TID 06/16/20 Glucosam/Roland-Msm1/C/Perico/Bosw [Glucosamine-Chondroitin Tablet] 1 each PO DAILY 06/16/20 Stool Softener 1 tab PO DAILY PRN 06/16/20 Turmeric Root Extract [Turmeric] 500 mg PO DAILY 06/16/20 Vitamin B Complex 1 each PO DAILY 06/16/20 Cyclobenzaprine [Flexeril] 10 mg PO TID PRN #90 tab 06/25/20 HYDROcodone/APAP 10-325MG [[place] 10] 1 - 2 each PO Q4H PRN #84 tab 06/25/20 oxyCODONE HCL/ACETAMINOPHEN [Percocet 5-325 mg] 1 tab PO Q12HR PRN #14 tab 06/26/20 diazePAM [Valium] 5 mg PO DAILY PRN 1 Days #2 tab 06/30/24 Controlled Substance Measures - Controlled Substance Measures Is patient prescribed a controlled substance at discharge?: Yes When asked, does pt state using other controlled substances?: Yes If prescribed controlled substance>3 days was MAPS reviewed?: Prescribed <3 Days
== END ==
LOC: PNWHC3 09:34
PROVIDERS: ATTEND Specialist
DX: M51.24 Other intervertebral disc displacement, thoracic region (principal); M51.26 Other intervertebral disc displacement, lumbar region; M51.360 Other intervertebral disc degeneration, lumbar region with discogenic back pain only; M96.1 Postlaminectomy syndrome, not elsewhere classified; Z87.891 Personal history of nicotine dependence; Z79.891 Long term (current) use of opiate analgesic; Z79.01 Long term (current) use of anticoagulants
CPT/HCPCS: 99211

== ENCOUNTER → 2024-08-25 | Outpatient (CLI) | payer BC ==
[2024-08-25 14:41] VITALS: BP 144/84; PULSE 93; RESP 17; TEMP 95.6
--- NOTE | 2024-08-25 16:21 | P.PAINPG ---
Objective - Vital Signs Vital signs: Intake & Output 08/24/24 08/25/24 08/25/24 18:59 06:59 18:59 Weight 111.13 kg PQRS Measure Charge Sheet Comment: HISTORY OF PRESENT ILLNESS: A 59 yr old male presents today w severe and chronic LBP > 5 yrs secondary to L4-S1 Laminectomy/ Fusion w Hardware for evaluation. Pt states pain level is provoked at 6 /10 in intensity, constant, localized in the lower lumbar spine, predominantly axial, achy in character w occasional shooting pain towards the L & R of midline. Pain is provoked by weight bearing. Pain is alleviated by PT x 6 wks which ended in Oct 2023, physician guided home exercises 5 times weekly since Oct 2023, medications, topical, heat, ice, manual massage, repositioning and rest . Interventional procedures include Medications include [place] 5/325mg, Ibu 800mg REVIEW OF ORGAN SYSTEMS: CONSTITUTIONAL: No fevers or chills. No recent weight loss. NEUROLOGICAL: + numbness and tingling along the distal extremities. No seizure disorders or headaches. MUSCULOSKELETAL: + pain PSYCHIATRIC: Denies current depression or suicidal thoughts. Physical Examinations : Constitutional : Cooperative , not in acute distress . Neurologic : Cranial nerve II to XII intact. No focal neurological deficits. Psychiatric : alert & oriented x 3. Matching mood & appropriate affect. Judgment & insight intact. Musculoskeletal : Cervical Spine Motor strength in the deltoid and biceps: Normal right side. Normal Left side Motor strength biceps and the wrist extensors: Normal right side . Normal left side Motor strength in the triceps muscle: Normal right side. Normal left side Deep tendon reflexes: Normal at the biceps. Normal at Brachioradialis. Normal at triceps Vertebral body tenderness to deep palpation over Cervical facet loading test: positive bilaterally Spurling test: positive bilaterally Neck distraction test: positive bilaterally Gilberto sign: positive bilaterally Lumbar spine +Incisional scar intact Motor strength lower extremities ,thigh and legs 5/5 Right side , 5/5 Left side Deep tendon reflexes : Normal Knee Jerk. Normal Ankle Jerk Vertebral body tenderness over L5 Manrique Test positive BL L5-S1 Lumbar facet Loading Test: positive Right / positive Left Range of motion of the lumbar spine Flexion 30 degrees, extension 10 degrees Straight Leg Raise test: Left/ Right positive at <35 degrees Len test: positive right / positive left. Severe tenderness over the Sacroiliac joint on the Right / Left sides Gaenslen test: positive bilaterally Seated flexion test: positive bilaterally. Sacral spine : Severe tenderness over the Sacroiliac joint: right side / left side Range of motion: Flexion of the lumbar spine <60 degrees Range of motion: Extension of the lumbar spine <20 degrees Gaenslen's Test positive Len test: positive right side / left side Thigh Thrust Test Sacral Thrust Test Imaging: MRI non contrast lumbar spine reviewed Assessment/ Plan : L4-S1 laminectomy/ fusion w hardware Recommendation of Caudal PAULETTE w Lysis. Pt will think about it and RTC on an as needed basis. All questions answered. I have spent greater than 30 minutes on patient care today. Dr Veliz was available by phone for the evaluation of this patient. The time was used to review the medical records including relevant urine studies and Prescription history (MAPs), review of the available imaging, evaluation and examination of the patient, coordination of care with the medical staff and if applicable referring physicians, as well as creation of the medical record PQRS Narrative: Smoking Status Former smoker Hx Alcohol Use (MH) Yes Home Medications: Ambulatory Orders lisinopriL [Zestril] 20 mg PO QAM 02/04/14 Hydrocodone/Acetaminophen [[place] 5-325] 1 tab PO Q6HR PRN #12 tab 06/13/19 LORazepam [Ativan] 1 mg PO TID PRN 06/13/19 Aspirin [Adult Low Dose Aspirin EC] 81 mg PO DAILY 06/16/20 Gabapentin 800 mg PO TID 06/16/20 Glucosam/Roland-Msm1/C/Perico/Bosw [Glucosamine-Chondroitin Tablet] 1 each PO DAILY 06/16/20 Stool Softener 1 tab PO DAILY PRN 06/16/20 Turmeric Root Extract [Turmeric] 500 mg PO DAILY 06/16/20 Vitamin B Complex 1 each PO DAILY 06/16/20 Cyclobenzaprine [Flexeril] 10 mg PO TID PRN #90 tab 06/25/20 HYDROcodone/APAP 10-325MG [[place] 10] 1 - 2 each PO Q4H PRN #84 tab 06/25/20 oxyCODONE HCL/ACETAMINOPHEN [Percocet 5-325 mg] 1 tab PO Q12HR PRN #14 tab 06/26/20 diazePAM [Valium] 5 mg PO DAILY PRN 1 Days #2 tab 06/30/24 Controlled Substance Measures - Controlled Substance Measures Is patient prescribed a controlled substance at discharge?: No
== END ==
LOC: PNWHC3 14:29
PROVIDERS: ATTEND Specialist
DX: M43.27 Fusion of spine, lumbosacral region (principal); Z87.891 Personal history of nicotine dependence
CPT/HCPCS: 99211